=== PATIENT | male | born 1990 | race African-American/Black ===

== ENCOUNTER 2018-10-26 20:30 | Inpatient (IN) ==
[2018-10-26] MEDS ORDERED: ONDANSETRON 4 MG/2 ML VIAL IV STA (22:24)
[2018-10-26] MEDS ORDERED: ALUM/MAG/SIMETH/LIDO VISC 1:1 30 ML BOTTLE PO STA (22:24)
[2018-10-26] MEDS ORDERED: KETOROLAC 30 MG/1 ML VIAL IV STA (22:24)
[2018-10-26] MEDS ORDERED: PANTOPRAZOLE 40 MG VIAL IV STA (22:24)
[2018-10-26] MEDS ORDERED: SODIUM CHLORIDE 0.9% 1,000 ML IV STA (22:24)
[2018-10-26 22:58] LABS: Apearance,Urine CLEAR (Clear); Bilirubin,Urine Negative (Negative); Blood, Urine Negative (Negative); Glucose,Urine (UA) Negative (Negative); Ketones,Urine Negative (Negative); Nitrite,Urine Negative (Negative); Protein,Urine Negative; Urine Color Colorless (Yellow); Urine Specific Gravity 1.001 (1.001-1.035); Urine Urobilinogen < 2.0 EU/DL (0.2-1.0)
[2018-10-26 23:08] LABS: Barbiturates Screen,Urine Negative (Negative); Benzodiazepines Screen,Urine Negative (Negative); Cannabinoid Screen,Urine Positive (Negative); Opiate Screen,Urine Negative (Negative); Phencyclidine Screen,Urine Negative (Negative)
[2018-10-26 23:17] LABS: Basophils % 0.8 % (0.0-0.8); Eosinophils # 0.1 10*3/uL (0.0-0.87); Eosinophils % 1.7 % (0.00-10.9); Hematocrit 40.1 VOL% (42.0-52.0); Immature Granulocytes % 0.2 %; Immature Granulocytes Absolute 0.01 #; Lymphocytes # 2.1 10*3/uL (1.4-4.0); Lymphocytes % 40.1 % (21.2-54.2); Mean Corpuscular HGB Conc 34.9 GM/DL (32-36); Mean Corpuscular Hemoglobin 32 PG (27-34); Mean Corpuscular Volume 91.6 FL (87-102); Mean Platelet Volume 9.7 FL (9.6-12.0); Monocytes # 0.5 10*3/uL (0.11-0.8); Monocytes % 9.6 % (1.7-12.7); Neutrophils # 2.5 10*3/uL (1.4-7.4); Neutrophils % 47.6 % (38.7-73.9); Platelet Count 232 T/CUMM (130-400); Red Blood Count 4.38 MC/CUMM (3.8-5.5); Red Cell Distribution Width 12.7 % (9.3-17.3); White Blood Count 5.3 T/CUMM (4-12)
[2018-10-26 23:38] LABS: Alanine Aminotransferase 16 U/L (16-61); Albumin 4.2 G/DL (3.4-5.0); Alkaline Phosphatase 106 U/L (45-117); Amylase 225 U/L (25-115); Aspartate Amino Transferase 17 U/L (0-37); Blood Urea Nitrogen 8 MG/DL (7-18); Calcium 8.9 MG/DL (8.5-10.1); Glucose 75 MG/DL (74-106); Osmolality,Calculated 279.1 MOS/KG (273-304); Potassium 3.4 MMOL/L (3.5-5.1); Sodium 142 MMOL/L (136-145); Total Protein 7.9 G/DL (6.4-8.3)
[2018-10-27] MEDS ORDERED: MORPHINE 4 MG/1 ML VIAL IV PRN (01:10)
[2018-10-27] MEDS ORDERED: LORazepam 2 MG/1 ML VIAL IV PRN (01:13)
[2018-10-27] MEDS ORDERED: ONDANSETRON 4 MG/2 ML VIAL IV PRN (01:14)
[2018-10-27] MEDS: SODIUM CHLORIDE 0.9% 1,000 ML IV SCH ×3 (02:12→16:35)
[2018-10-27 03:19] LABS: Basophils % 0.6 % (0.0-0.8); Eosinophils # 0.1 10*3/uL (0.0-0.87); Eosinophils % 2.5 % (0.00-10.9); Hematocrit 36.2 VOL% (42.0-52.0); Hemoglobin 12.6 GM/DL (14.0-18.0); Lymphocytes # 2.5 10*3/uL (1.4-4.0); Lymphocytes % 47.9 % (21.2-54.2); Mean Corpuscular HGB Conc 34.8 GM/DL (32-36); Mean Corpuscular Hemoglobin 32 PG (27-34); Mean Corpuscular Volume 92.1 FL (87-102); Mean Platelet Volume 9.7 FL (9.6-12.0); Monocytes # 0.6 10*3/uL (0.11-0.8); Monocytes % 10.6 % (1.7-12.7); Neutrophils % 38.4 % (38.7-73.9); Platelet Count 211 T/CUMM (130-400); Red Blood Count 3.93 MC/CUMM (3.8-5.5); Red Cell Distribution Width 12.7 % (9.3-17.3); White Blood Count 5.3 T/CUMM (4-12)
[2018-10-27 03:33] LABS: Calcium 8.1 MG/DL (8.5-10.1); Osmolality,Calculated 278.3 MOS/KG (273-304); Potassium 3.8 MMOL/L (3.5-5.1); Risk Ratio 2.54; VLDL CHOLESTEROL 6.4 MG/DL
[2018-10-27 04:32] LABS: Band Neutrophils 1 % (0-10); Eosinophils 2 % (0-10); Lymphocytes 51 % (20-55); Segmented Neutrophils 37 % (50-85); Total Cells Counted 100
[2018-10-27 04:33] LABS: Atypical Lymphocytes Moderate
[2018-10-27 04:34] LABS: Anisocytosis 1+; Platelet Estimate Adequate
[2018-10-27] MEDS: HYDROmorphone 2 MG/1 ML VIAL IV PRN ×5 (07:02→20:51)
[2018-10-27] MEDS: PANTOPRAZOLE 40 MG VIAL IV SCH (10:00)
[2018-10-28] MEDS: HYDROmorphone 2 MG/1 ML VIAL IV PRN ×6 (00:23→22:30)
[2018-10-28] MEDS: SODIUM CHLORIDE 0.9% 1,000 ML IV SCH ×4 (01:30→18:31)
[2018-10-28] MEDS: PANTOPRAZOLE 40 MG VIAL IV SCH (08:12)
[2018-10-29] MEDS: SODIUM CHLORIDE 0.9% 1,000 ML IV SCH ×3 (01:43→07:24)
[2018-10-29] MEDS: HYDROmorphone 2 MG/1 ML VIAL IV PRN ×2 (01:44→05:02)
[2018-10-29] MEDS ORDERED: traMADol 50 MG TABLET PO PRN (07:01)
[2018-10-29 07:35] VITALS: BP 122/82
[2018-10-29] MEDS ORDERED: PANTOPRAZOLE 40 MG TABLET PO SCH (16:30)
== END 2018-10-29 09:08 | disposition home or self-care (01) | DRG 439 ==
LOC: N.ED 20:30 → SUATTDRO 10-27 01:10 → N.EDINP 10-27 01:10 → INTOOBSV 10-27 01:10 → OBSVTOIN 10-27 01:10 → N.2E 10-27 01:45
PROVIDERS: ADMIT Internal Medicine; ATTEND Internal Medicine Geriatric Medicine